=== PATIENT | female | born 1985 | race Caucasian/White ===

== ENCOUNTER 2017-12-01 | Emergency (ER) | payer SELFPAY ==
--- NOTE | 2017-12-01 00:15 | NUR ---
PATIENT LEFT WITHOUT BEING SEEN BY DR. VILLA. NO FURTHER CARE PROVIDED FOR PATIENT.
--- NOTE | 2017-12-01 00:15 | NUR ---
CALLED TO BE TRIAGE , NO RESPONSE, SHE LEFT
== END 2017-12-01 00:15 | disposition left against medical advice (07) ==
LOC: MED
DX: R10.9 Unspecified abdominal pain (principal); Z53.21 Procedure and treatment not carried out due to patient leaving prior to being seen by health care provider